=== PATIENT | female | born 1945 | race Caucasian/White ===

== ENCOUNTER → 2020-09-14 14:01 | Outpatient (BNVA) | payer OTHER, SELFPAY | PROVIDERS: PCP Nurse Practitioner Family; Visit Provider Internal Medicine | DX: M25.50 Pain in unspecified joint (principal); Z11.1 Encounter for screening for respiratory tuberculosis; Z11.59 Encounter for screening for other viral diseases; R79.82 Elevated C-reactive protein (CRP); L40.9 Psoriasis, unspecified | CPT/HCPCS: 99203; 99204 ==

== ENCOUNTER 2020-09-14 15:36 | Outpatient (CLI) | payer MEDICARE, SELFPAY ==
--- NOTE | 2020-09-14 15:55 | XR_ITS ---
WS: [id number] Exam: XR foot RT 2V 12430 Date/Time of Exam: 09/14/2020 4:08 PM Reason For Exam: M25.50 - Pain in unspecified joint No fracture or dislocation. Anterior and posterior heel spurs. Degenerative change at the first MP brunilda int and mild bunion deformity noted. Normal soft tissues. XR/XR foot RT 2V 80225 IMPRESSION: 1. Mild bunion deformity with degenerative change at the first MP joint. 2. No fracture or dislocation. 3. Heel spurs.
--- NOTE | 2020-09-14 15:55 | XR_ITS ---
WS: [id number] Exam: XR foot LT 2V [id number] Date/Time of Exam: 09/14/2020 4:08 PM Reason For Exam: M25.50 - Pain in unspecified joint No fracture or dislocation. Hammertoe deformities from the second to the fifth toes. No soft tissue f oreign bodies are seen. Mild DJD at the first MP joint and mild bunion deformity XR/XR foot LT 2V 72717 IMPRESSION: 1. Degenerative changes. Mild bunion deformity. 2. No fracture or dislocation.
--- NOTE | 2020-09-14 15:55 | XR_ITS ---
WS: [id number] Exam: XR sacroiliac jts m 3V [id number] Date/Time of Exam: 09/14/2020 4:08 PM Reason For Exam: L40.9 - Psoriasis, unspecified Mild DJD of the SI joints. No fracture or bone destruction. The SI joints are open. XR/XR sacroiliac jts m 3V 69138 IMPRESSION: 1. 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
--- NOTE | 2020-09-14 15:55 | XR_ITS ---
WS: [id number] Exam: XR hand RT 2V [id number] Date/Time of Exam: 09/14/2020 4:08 PM Reason For Exam: M25.50 - Pain in unspecified joint No fracture or dislocation. Degenerative changes of the IP and MP joints. Normal soft tissues. XR/XR hand RT 2V 73147 IMPRESSION: 1. Degenerative changes. No fracture or dislocation.
--- NOTE | 2020-09-14 15:55 | XR_ITS ---
WS: [id number] Exam: XR hand LT 2V [id number] Date/Time of Exam: 09/14/2020 4:08 PM Reason For Exam: M25.50 - Pain in unspecified joint No fracture or dislocation. Degenerative changes of the IP joints. No soft tissue foreign bodies are seen. 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 XR/XR hand LT 2V 75162 IMPRESSION: 1. Degenerative changes. No fracture or dislocation.
== END 2020-09-14 15:37 | disposition home or self-care (01) ==
PROVIDERS: PCP Nurse Practitioner Family; Visit Provider Internal Medicine
DX: M25.50 Pain in unspecified joint (principal); L40.9 Psoriasis, unspecified; D86.9 Sarcoidosis, unspecified; Z51.81 Encounter for therapeutic drug level monitoring; M32.9 Systemic lupus erythematosus, unspecified; M19.09 Primary osteoarthritis, other specified site
CPT/HCPCS: 36415; 72202; 73120; 73620; 80053; 82306; 82550; 82728; 83540; 84100; 84443; 85025; 85651; 86140; 86431; 86480; 86704; 86803; 86812; 87340

== ENCOUNTER → 2020-10-24 14:15 | Outpatient (BNVA) | payer MEDICARE, OTHER, SELFPAY | PROVIDERS: PCP Nurse Practitioner Family; Visit Provider Internal Medicine | DX: M25.50 Pain in unspecified joint (principal); Z79.899 Other long term (current) drug therapy; E79.0 Hyperuricemia without signs of inflammatory arthritis and tophaceous disease; R70.0 Elevated erythrocyte sedimentation rate; R76.8 Other specified abnormal immunological findings in serum; R79.89 Other specified abnormal findings of blood chemistry; M53.3 Sacrococcygeal disorders, not elsewhere classified | CPT/HCPCS: 36415; 81003; 82550; 83516; 84439; 84550; 85651; 86140; 99214 ==

== ENCOUNTER → 2020-11-15 13:46 | Outpatient (BNVA) | payer MEDICARE, OTHER, SELFPAY | PROVIDERS: PCP Nurse Practitioner Family; Visit Provider Internal Medicine | DX: R70.0 Elevated erythrocyte sedimentation rate (principal); R79.82 Elevated C-reactive protein (CRP); Z79.899 Other long term (current) drug therapy | CPT/HCPCS: 36415; 85651; 86140 ==